=== PATIENT | male | born 1980 ===

== ENCOUNTER 2021-09-24 13:31 | Outpatient (REF) | payer OTHER, SELFPAY ==
[2021-09-24 17:04] LABS: Bilirubin Negative (Negative); Blood Negative (Negative); Clarity Clear (Clear); Glucose Negative (Negative); Ketones Trace mg/dL (Negative); Leukocyte Esterase Negative (Negative); Nitrite Negative (Negative); Specific Gravity >= 1.030 (1.005-1.025); Urobilinogen 0.2 EU/dL (Up TO 0.2); pH 6.5 (5-8)
[2021-09-24 22:23] LABS: PSA, Screening 0.4 ng/mL (0.0-2.5)
== END 2021-09-24 13:32 | disposition home or self-care (01) ==
LOC: LBN 13:31
PROVIDERS: Visit Provider Nurse Practitioner Gerontology
DX: Z12.5 Encounter for screening for malignant neoplasm of prostate; R31.9 Hematuria, unspecified; R39.9 Unspecified symptoms and signs involving the genitourinary system
CPT/HCPCS: 84153; 81003